=== PATIENT | female | born 1990 | race Two or more races ===

== ENCOUNTER 2016-07-07 14:08 | Emergency (ER) | payer OTHER ==
[2016-07-07 14:20] VITALS: BP 130/86; PULSE 100; RESP 18; TEMP 97.9; O2SAT 98
--- NOTE | 2016-07-07 15:28 | UCPHY ---
[id number] complains of great toe injury. 2 hours prior to arrival while barefoot she stubbed her toe against a vacuum freight car cleaner and reports a near avulsion of the great toenail explaining that was flipped up like a car devries but still attached at the eponychial region. There is mild bleeding. She pushed the toenail back down came in for evaluation. She reports mild to moderate discomfort to the site and feels that the had toe nail may fall off. She is current certain about catching on something. For ROS: She reports no bony pain. No numbness or tingling. No other injuries. 5 point ROS is otherwise negative. Smoking Status: Current every day smoker Physical Exam: Physical Exam Vital signs are normal. General: No acute distress Cardiac: Brisk capillary refill is intact throughout. Pulses are 2+ and symmetric in the affected extremity. Skin: No rash or pallor. Extremities: Atraumatic and normal except for right great toe Right great toe: Patient has a toenail partial avulsion with minimal bleeding from the distal nail bed. The paronychial and eponychial region is intact. There is no bony tenderness. No lacerations. Neuro: Alert. Constitutional: Initial Vital Signs Temperature (C) 36.6 C 07/07/16 14:16 Heart Rate 100 07/07/16 14:16 Respiratory Rate 18 07/07/16 14:16 Blood Pressure 130/86 H 07/07/16 14:16 O2 Sat (%) 98 07/07/16 14:16 O2 Delivery Mode Room Air Allergies/Adverse Reactions: cefaclor [From [facility]] Allergy (Verified 07/07/16 14:16) Home Medications: Medication Instructions Recorded Adderall 10 MG (*) 07/07/16 Hydrocodone/APAP 5/325 [Andes 1 - 2 tab PO Q4PRN PRN #15 tab 07/07/16 5/325 (*)] MDM/Departure - MDM Procedures: Sutures to secure nail: After verbal consent I cleaned her toe with chlorhexidine. I performed digital block using a 50 50 mix of 0.5% Marcaine and 2% lidocaine-8 of males to the base of the toenail with 3 injections with good effect. Patient tolerated diet with no complications. I proceeded to secure the toenail with 2 interrupted sutures 180 each distal end of the toenail through the distal nail bed soft tissue and skin and securing the toenail with 4 0 Ethilon. Patient tolerated this well with no complications. A dressing was placed. She is placed in a postop shoe. ED Course/Re-evaluation: Patient will return for suture removal in 10-12 days that have bandage in the toenail for comfort thereafter. - Depart Disposition: Home, Routine, Self-Care Clinical Impression: Toenail avulsion Qualifiers: Encounter type: initial encounter Qualifier Code: (S91.209A) Unspecified open wound of unspecified toe(s) with damage to nail, initial encounter Instructions: Care For Your Stitches (ED) Additional Instructions: Diagnosis: Partial toenail avulsion right great toe Plan: Keep the wound clean and dry for the next 2 days. Then clean it daily with warm soapy water. Use a postop shoe to protect the toe Ibuprofen and Tylenol or Vicodin for pain control No driving, alcohol or come Vicodin Return for suture removal in 10-12 days. Prescriptions: Hydrocodone/APAP 5/325 [Andes 5/325 (*)] 1 - 2 tab PO Q4PRN PRN #15 tab PRN Reason: Pain Referrals: [place],. [Primary Care Provider] - As per Instructions - PQRS PQRS Measurement: NA
== END 2016-07-07 15:43 | disposition home or self-care (01) ==
LOC: CED 14:08
PROC: 0HQRXZZ Repair Toe Nail, External Approach (ICD-10-PCS; principal; 2016-07-07)
DX: S91.202A Unspecified open wound of left great toe with damage to nail, initial encounter (principal); Z72.0 Tobacco use; W22.8XXA Striking against or struck by other objects, initial encounter; Y93.E3 Activity, vacuuming
CPT/HCPCS: G0463-PO